=== PATIENT | female | born 1955 | race Caucasian/White ===

== ENCOUNTER 2020-02-20 14:47 | Day surgery (SDC) | payer MEDICARE, OTHER | END 2020-02-20 22:45 | disposition home or self-care (01) | LOC: ATC 14:47 | DX: I13.2 Hypertensive heart and chronic kidney disease with heart failure and with stage 5 chronic kidney disease, or end stage renal disease (principal); E11.22 Type 2 diabetes mellitus with diabetic chronic kidney disease; N18.6 End stage renal disease; I50.22 Chronic systolic (congestive) heart failure; D63.1 Anemia in chronic kidney disease; I48.0 Paroxysmal atrial fibrillation; E66.01 Morbid (severe) obesity due to excess calories; E43 Unspecified severe protein-calorie malnutrition; E11.43 Type 2 diabetes mellitus with diabetic autonomic (poly)neuropathy; I25.10 Atherosclerotic heart disease of native coronary artery without angina pectoris; I25.2 Old myocardial infarction; F41.1 Generalized anxiety disorder; G47.33 Obstructive sleep apnea (adult) (pediatric); F32.9 Major depressive disorder, single episode, unspecified; E78.5 Hyperlipidemia, unspecified; Z20.822 Contact with and (suspected) exposure to COVID-19; Z91.012 Allergy to eggs; Z66 Do not resuscitate; Z95.5 Presence of coronary angioplasty implant and graft; Z86.718 Personal history of other venous thrombosis and embolism; Z79.4 Long term (current) use of insulin; Z79.01 Long term (current) use of anticoagulants; Z79.899 Other long term (current) drug therapy ==

== ENCOUNTER 2020-02-21 07:20 | Day surgery (SDC) | payer OTHER ==
--- NOTE | 2020-02-21 14:59 | NUR ---
discharge pt discharged back to [facility] following administration of 2 units PRBC.
== END 2020-02-21 15:03 | disposition home or self-care (01) ==
LOC: TRN 07:20 → SURS 07:23 → TRN 15:03 → EDSTATUS 02-22 14:20
DX: I13.2 Hypertensive heart and chronic kidney disease with heart failure and with stage 5 chronic kidney disease, or end stage renal disease (principal); E11.22 Type 2 diabetes mellitus with diabetic chronic kidney disease; N18.6 End stage renal disease; I50.22 Chronic systolic (congestive) heart failure; D63.1 Anemia in chronic kidney disease; E43 Unspecified severe protein-calorie malnutrition; E11.43 Type 2 diabetes mellitus with diabetic autonomic (poly)neuropathy; E66.01 Morbid (severe) obesity due to excess calories; G47.33 Obstructive sleep apnea (adult) (pediatric); I48.91 Unspecified atrial fibrillation; M19.90 Unspecified osteoarthritis, unspecified site; I25.10 Atherosclerotic heart disease of native coronary artery without angina pectoris; Z20.822 Contact with and (suspected) exposure to COVID-19; Z91.012 Allergy to eggs; Z66 Do not resuscitate; F41.1 Generalized anxiety disorder; Z79.899 Other long term (current) drug therapy; Z79.4 Long term (current) use of insulin; Z79.01 Long term (current) use of anticoagulants
CPT/HCPCS: 36415; 36430; 86850; 86900; 86901; 86923; P9016

== ENCOUNTER → 2020-03-12 | Outpatient (CLI) | payer OTHER ==
[~2020-03-12] MED LIST: ACET500 PO; ATOR40TA PO; BRILINTA90 MG PO; CARV3.125 PO; CELEXA40 MG PO; CHOLP PO; DICLOFENAC SOD100 G1 TOP; DOCUZEN 8.6-501 EACH PO; ERGO50000 PO; FURO80 PO; GABA100 PO; Glucagon Emergen1 MG IM; ISOSORBIDE MONO30 MG PO; JANTOVEN PO; K-Dur10 MEQ PO; LOPE2C PO; MIRALAX17 GM PO; NITR.4SL SL; NOVOLIN 70100 UNIT/3 SC; NYSTOP15 GM TOP; ONDA4 PO; PANTOPRAZOLE SO40 M2 PO; SYSTANE BALANCE10 ML BOTHEYES; TRAM50 PO; TRAZ50 PO
[2020-03-12 11:47] LABS: Albumin, Blood 1.7 g/dL (3.4-5.0); Albumin/Globulin Ratio 0.4 (0.8-1.8); Bilirubin, Direct 0.2 mg/dL (0.0-0.3); Bilirubin, Indirect 0.3 mg/dL (0.1-0.7); Bilirubin, Total 0.5 mg/dL (0.1-1.0); Bun/Creatinine Ratio 24.2 (12.0-20.0); Creatinine, Blood 2.69 mg/dL (0.40-1.00); Globulin, Blood 4.3 g/dL (2.2-4.0); Magnesium, Blood 1.6 mg/dL (1.6-2.4); Phosphorus, Blood 3.9 mg/dL (2.5-4.9); Potassium, Blood 3.8 mmol/L (3.5-5.5); Uric Acid, Blood 14.5 mg/dL (2.6-6.0)
[2020-03-12 12:04] LABS: Thyroid Stimulating Hormone 1.43 uIU/mL (0.360-4.800)
[2020-03-14 14:07] LABS: A/G RATIO 0.6 (0.7-1.7); ALBUMIN 1.9 g/dL (2.9-4.4); ALPHA-1-GLOBULIN 0.4 g/dL (0.0-0.4); ALPHA-2-GLOBULIN 0.8 g/dL (0.4-1.0); BETA GLOBULIN 0.8 g/dL (0.7-1.3); GAMMA GLOBULIN 1.3 g/dL (0.4-1.8); GLOBULIN, TOTAL 3.3 g/dL (2.2-3.9); IMMUNOGLOBULIN A, QN, SERUM 509 mg/dL (87-352); IMMUNOGLOBULIN G, QN, SERUM 1158 mg/dL (586-1602); IMMUNOGLOBULIN M, QN, SERUM 60 mg/dL (26-217); M-SPIKE 0.4 g/dL (Not Observed); PROTEIN, TOTAL, SERUM 5.2 g/dL (6.0-8.5)
[2020-03-17 08:08] LABS: ANTIGLOMERULAR BM AB 3 units (0-20)
[2020-03-17 14:10] LABS: ANA DIRECT Negative (Negative); ANTIMYELOPEROXIDASE (MPO) ABS <9.0 U/mL (0.0-9.0); ANTIPROTEINASE 3 (PR-3) ABS <3.5 U/mL (0.0-3.5); ATYPICAL PANCA <1:20 titer (Neg:<1:20); CYTOPLASMIC (C-ANCA) <1:20 titer (Neg:<1:20); PERINUCLEAR (P-ANCA) <1:20 titer (Neg:<1:20)
== END | disposition home or self-care (01) ==
LOC: LAB SHORT 10:05 → LAB 10:05
PROVIDERS: Internal Medicine Nephrology
DX: N18.30 Chronic kidney disease, stage 3 unspecified (principal); D63.1 Anemia in chronic kidney disease; N25.81 Secondary hyperparathyroidism of renal origin; E55.9 Vitamin D deficiency, unspecified; E78.00 Pure hypercholesterolemia, unspecified; D51.8 Other vitamin B12 deficiency anemias; D52.8 Other folate deficiency anemias; D50.9 Iron deficiency anemia, unspecified; R76.9 Abnormal immunological finding in serum, unspecified; R94.5 Abnormal results of liver function studies; R94.6 Abnormal results of thyroid function studies
CPT/HCPCS: 80053; 82088; 82248; 82607; 82728; 82746; 82784; 83516; 83520; 83540; 83550; 83735; 83883; 84100; 84155; 84165; 84244; 84443; 84550; 86038; 86256; 86334

== ENCOUNTER → 2020-03-17 | Outpatient (CLI) | payer MEDICARE, OTHER ==
[2020-03-17 11:01] LABS: Albumin, Blood 1.5 g/dL (3.4-5.0); Anion Gap 7 mmol/L (6-16); Blood Urea Nitrogen 77 mg/dL (8-24); Bun/Creatinine Ratio 23.3 (12.0-20.0); CO2, Blood 29 mmol/L (21-32); Calcium, Blood 7.9 mg/dL (8.5-10.1); Chloride, Blood 91 mmol/L (98-108); Creatinine, Blood 3.31 mg/dL (0.40-1.00); Glomerular Filtration Rate 15 (60-); Glucose, Blood 139 mg/dL (70-99); Phosphorus, Blood 4.2 mg/dL (2.5-4.9); Potassium, Blood 4.1 mmol/L (3.5-5.5); Sodium, Blood 127 mmol/L (136-145)
[2020-03-19 14:09] LABS: A/G RATIO 0.5 (0.7-1.7); ALBUMIN 1.6 g/dL (2.9-4.4); ALPHA-1-GLOBULIN 0.4 g/dL (0.0-0.4); ALPHA-2-GLOBULIN 0.8 g/dL (0.4-1.0); BETA GLOBULIN 0.8 g/dL (0.7-1.3); GAMMA GLOBULIN 1.3 g/dL (0.4-1.8); GLOBULIN, TOTAL 3.4 g/dL (2.2-3.9); IMMUNOGLOBULIN A, QN, SERUM 504 mg/dL (87-352); IMMUNOGLOBULIN G, QN, SERUM 1162 mg/dL (586-1602); IMMUNOGLOBULIN M, QN, SERUM 58 mg/dL (26-217); M-SPIKE 0.4 g/dL (Not Observed)
[2020-03-20 08:10] LABS: ANTIGLOMERULAR BM AB 3 units (0-20)
== END | disposition home or self-care (01) ==
LOC: LAB 09:00 → LAB SHORT 09:00
PROVIDERS: Internal Medicine Nephrology
DX: R94.5 Abnormal results of liver function studies (principal); R94.6 Abnormal results of thyroid function studies; R76.9 Abnormal immunological finding in serum, unspecified; N18.30 Chronic kidney disease, stage 3 unspecified; D63.1 Anemia in chronic kidney disease
CPT/HCPCS: 80069; 82306; 82784; 83516; 83883; 83970; 84155; 84165; 86334

== ENCOUNTER 2020-03-21 18:37 | Inpatient (IN) | payer MEDICARE, OTHER ==
[~2020-03-21] VITALS: Ht 160 cm; Wt 155.5 kg
[2020-03-21 18:56] LABS: BASOPHILS ABSOLUTE AUTO 0.18 K/mm3 (0.00-0.23); BASOPHILS PERCENT AUTO 0 % (0-2); EOSINOPHILS PERCENT AUTO 0 % (0-6); Hematocrit 28.1 % (33.0-51.0); Hemoglobin 8.4 g/dL (11.5-16.0); IMMATURE GRAN ABSOLUTE AUTO 1.65 K/mm3 (0.00-0.10); IMMATURE GRAN PERCENT AUTO 3 % (0-1); LYMPHOCYTES ABSOLUTE AUTO 2.58 K/mm3 (0.84-5.20); LYMPHOCYTES PERCENT AUTO 5 % (21-46); MONOCYTES ABSOLUTE AUTO 1.67 K/mm3 (0.16-1.47); MONOCYTES PERCENT AUTO 3 % (4-13); Mean Corpuscular HGB 23.4 pg (26.0-34.0); Mean Corpuscular HGB Conc 29.9 g/dL (31.5-36.5); Mean Corpuscular Volume 78 fL (80-100); Mean Platelet Volume 10.1 fL (9.1-12.4); NEUTROPHILS ABSOLUTE AUTO 51.25 K/mm3 (1.96-9.15); NEUTROPHILS PERCENT AUTO 89 % (41-73); NRBC ABSOLUTE 0.09 K/mm3 (0.00-0.02); NRBC Auto 0.2 /100 WBC (0.0-0.2); Platelet Count 410 K/mm3 (150-400); RDW Coefficient Variation 19.6 % (11.7-14.2); RDW Standard Deviation 55.6 fL (35.1-46.3); Red Blood Cell Count 3.59 M/mm3 (3.80-5.20)
[2020-03-21 19:02] LABS: White Blood Cell Count 57.33 K/mm3 (4.00-11.30)
[2020-03-21] MEDS ORDERED: TRAZ50 PO (19:18)
[2020-03-21 19:20] LABS: Albumin, Blood 1.3 g/dL (3.4-5.0); Albumin/Globulin Ratio 0.3 (0.8-1.8); Bilirubin, Total 0.6 mg/dL (0.1-1.0); Bun/Creatinine Ratio 28.4 (12.0-20.0); Calcium, Blood 7.8 mg/dL (8.5-10.1); Creatinine, Blood 3.24 mg/dL (0.40-1.00); Globulin, Blood 4.3 g/dL (2.2-4.0); Total Protein, Blood 5.6 g/dL (6.4-8.2)
[2020-03-21 19:30] LABS: Prothrombin Time Results >90.0 Sec (9.7-11.5)
[2020-03-21 19:31] LABS: International Normalized Ratio >10.00
[2020-03-21] MEDS ORDERED: ATOR40TA PO (20:31)
[2020-03-21] MEDS ORDERED: CELEXA40 MG PO (20:31)
[2020-03-21] MEDS ORDERED: GABA100 PO (20:32)
[2020-03-21] MEDS ORDERED: BRILINTA90 MG PO (20:32)
[2020-03-21] MEDS ORDERED: ISOSORBIDE MONO30 MG PO (20:33)
[2020-03-21] MEDS ORDERED: FURO80 PO ×2 (20:33→20:40)
[2020-03-21] MEDS ORDERED: K-Dur10 MEQ PO (20:34)
[2020-03-21] MEDS ORDERED: CARV3.125 PO (20:35)
[2020-03-21] MEDS ORDERED: PANTOPRAZOLE SO40 M2 PO (20:35)
[2020-03-21] MEDS ORDERED: ERGO50000 PO (20:36)
[2020-03-21] MEDS ORDERED: MIRALAX17 GM PO (20:37)
[2020-03-21] MEDS ORDERED: TRAM50 PO (20:38)
[2020-03-21] MEDS ORDERED: ONDA4 PO (20:39)
[2020-03-21] MEDS ORDERED: SYSTANE BALANCE10 ML BOTHEYES (20:40)
[2020-03-21] MEDS ORDERED: NITR.4SL SL (20:41)
[2020-03-21] MEDS ORDERED: ACET500 PO (20:42)
[2020-03-21] MEDS ORDERED: LOPE2C PO (20:43)
[2020-03-21] MEDS ORDERED: CHOLP PO (20:43)
[2020-03-21] MEDS ORDERED: DOCUZEN 8.6-501 EACH PO (20:44)
[2020-03-21] MEDS ORDERED: JANTOVEN PO (22:31)
[2020-03-21] MEDS ORDERED: NYSTOP15 GM TOP (22:32)
[2020-03-21] MEDS ORDERED: NOVOLIN 70100 UNIT/3 SC (22:33)
[2020-03-21] MEDS ORDERED: DICLOFENAC SOD100 G1 TOP (22:34)
[2020-03-21] MEDS ORDERED: Glucagon Emergen1 MG IM (22:35)
--- NOTE | 2020-03-21 22:38 | NUR ---
03/21/20 2238 Kit Pena PT RECIEVED ANTIBIOTICS PRIOR TO ARRIVAL TO OR.
--- NOTE | 2020-03-21 23:25 | NUR ---
ASSUMED CARE NOTE: ASSUMED CARE OF PT AT 2325, RECEVIED REPORT FROM ANEESH ER NURSE, AND ELIZABETH OR NURSE. PT ARRIVED TO UNIT VIA BED, HOVER MAT WAS USED TO TRANSFER PT TO UNIT BED. PT IS VENTED WITH 8.0 ETT, 22 AT THE [facility]. PT VENT SETTINGS AC18/370/5/50%, SPO2 ABOVE 90% NO RESP DISTRESS NOTED. PT RESPONDS TO VERBAL AND PAINFUL STIMULI. ABLE TO FOLLOW COMMANDS, ANSWER YES/NO QUESTIONS. DR. CUEVAS CALLED FOR CONSULT, AWAITING FOR VAP ORDERS. PT BP IS SOFT. PT IS IN SINUS LILLI WITH HR IN THE 50'S. OGT PLACED AT ARRIVAL BY ARJUN FINANCIAL ACCOUNTING ANALYST. X-RAY TO CONFIRM ETT AND OGT PLACEMENT.VETO AREA PACKED BY , WILL LEAVE IN PLACE FOR A FEW DAYS UNTIL HE TAKES IT OUT. GLEASON WAS ALSO PLACED BY IN THE OR. GLEASON DRAINING TEA COLORED URINE, SEDIMENT NOTED.
--- NOTE | 2020-03-22 01:20 | NUR ---
SBP IN THE 80'S, DBP IN THE 40'S, MAP IN THE 50'S. CALLED DR. CUEVAS REGARDING LOW BP. ORDERS FOR 1L BOLUS, GIVEN. WILL ATTEMPT TO OBTAIN GOOD IV ACCESS FOR PRESSORS.
--- NOTE | 2020-03-22 02:10 | NUR ---
LEVOPHED INITIATED AND TITRATED UP TO 5MCG/MIN. SBP INCREASED TO 100, MAP AT 60. PROPOFOL WAS AT 10MCG/KG/MIN WHICH WAS TURNED OFF AT 0200. PT VERY PALE, WEAK PULSES T/O. PT IS IN SINUS LILLI HR IN THE 50'S. PT HAS YET TO AWAKEN POST TURNING OFF SEDATION. NO ACTIVE BLEEDING NOTED FROM LABIA SITE.
[2020-03-22 03:24] LABS: BASOPHILS ABSOLUTE AUTO 0.18 K/mm3 (0.00-0.23); BASOPHILS PERCENT AUTO 0 % (0-2); EOSINOPHILS ABSOLUTE AUTO 0.01 K/mm3 (0.00-0.68); EOSINOPHILS PERCENT AUTO 0 % (0-6); Hematocrit 26.1 % (33.0-51.0); Hemoglobin 7.8 g/dL (11.5-16.0); IMMATURE GRAN PERCENT AUTO 4 % (0-1); LYMPHOCYTES ABSOLUTE AUTO 2.75 K/mm3 (0.84-5.20); LYMPHOCYTES PERCENT AUTO 6 % (21-46); MONOCYTES ABSOLUTE AUTO 0.97 K/mm3 (0.16-1.47); MONOCYTES PERCENT AUTO 2 % (4-13); Mean Corpuscular HGB 23.9 pg (26.0-34.0); Mean Corpuscular HGB Conc 29.9 g/dL (31.5-36.5); Mean Corpuscular Volume 80 fL (80-100); Mean Platelet Volume 10.1 fL (9.1-12.4); NEUTROPHILS ABSOLUTE AUTO 40.31 K/mm3 (1.96-9.15); NEUTROPHILS PERCENT AUTO 88 % (41-73); NRBC Auto 0.2 /100 WBC (0.0-0.2); Platelet Count 374 K/mm3 (150-400); RDW Coefficient Variation 19.9 % (11.7-14.2); RDW Standard Deviation 57.3 fL (35.1-46.3); Red Blood Cell Count 3.27 M/mm3 (3.80-5.20); White Blood Cell Count 45.82 K/mm3 (4.00-11.30)
--- NOTE | 2020-03-22 03:28 | NUR ---
CALLED DR. CUEVAS REGARDING LOW BP, ORDERS TO GIVE ANOTHER 1000ML BOLUS OVER THE PERIOD OF TWO HOURS. FAITH STS IT IS OKAY TO TITRATE LEVOPHED UP TO 10MCG/MIN VIA PERIPHERAL IV.
[2020-03-22 03:37] LABS: International Normalized Ratio 1.34
[2020-03-22 03:42] LABS: Anion Gap 13 mmol/L (6-16); Blood Urea Nitrogen 86 mg/dL (8-24); Bun/Creatinine Ratio 29.9 (12.0-20.0); CO2, Blood 23 mmol/L (21-32); Calcium, Blood 7.6 mg/dL (8.5-10.1); Chloride, Blood 94 mmol/L (98-108); Creatinine, Blood 2.88 mg/dL (0.40-1.00); Glomerular Filtration Rate 17 (60-); Glucose, Blood 90 mg/dL (70-99); Potassium, Blood 3.4 mmol/L (3.5-5.5); Sodium, Blood 130 mmol/L (136-145); Vancomycin, Random 20.9 ug/mL
[2020-03-22 03:43] LABS: Prothrombin Time Results 14.1 Sec (9.7-11.5)
--- NOTE | 2020-03-22 03:49 | NUR ---
NS RUNNING AT 100ML/HR INCREASED TO 500ML/HR , FOR A TOTAL OF 1000ML OVER THE NEXT 2 HOURS PER FAITH
--- NOTE | 2020-03-22 04:26 | NUR ---
LEVOPHED ON SB. SBP INCREASED TO 150 AND REMAINED UP THERE FOR [address] TO ASSESS PT.
[2020-03-22 05:23] LABS: PCO2 Arterial 35.3 mmHg (35-45); PO2 Arterial 73.1 mmHg (80-100); pH Blood Arterial 7.43 (7.35-7.45)
[2020-03-22 06:14] LABS: Source, Urine Catheter
[2020-03-22 06:17] LABS: Appearance, Urine Cloudy (Clear); Bilirubin, Urine Neg (Neg); Blood, Urine 5+ (Neg); Color, Urine Yellow (P-Yellow); Glucose Qualitative, Urine Neg (Neg); Ketones, Urine Neg (Neg); Leukocyte Esterase, Urine 3+ (Neg); Nitrite, Urine Pos (Neg); Protein, Urine 3+ (Neg); Urobilinogen, Urine NORM (Normal)
[2020-03-22 06:24] LABS: White Blood Cells, Urine TNTC /hpf (0-5)
[2020-03-22 06:25] LABS: Bacteria Many /hpf; Squamous Epithelial Cells Few /hpf (Few)
--- NOTE | 2020-03-22 06:37 | NUR ---
SHIFT SUMMARY: CAME IN TO SEE PT AT 0445, A CENTRAL LINE WAS PLACED TO LEFT INTERNAL JUGULAR, XRAY CONFIMRED PLACEMENT. PT CONTINUES TO BE ON 15MCG/KG/MIN OF PROPOFOL. PT RESPONDS TO PAINFUL STIMULI, HOWEVER IS WELL SEDATED. PT CONTINUES TO BE ON VENT WITH SETTINGS AT AC18/370/5/25%, SPO2 ABOVE 90% NO RESP DISTRESS NOTED. PT IN SINUS LILLI WITH BIGEMINEY PVC'S. PT BP STABLE NOW WITH LEVOPHED AT 4MCG/MIN. OGT CLAMPED AT THIS TIME. ABD PADS TO LEFT LABIA HAVE DRIED RED DRAINAGE, NO ACTIVE BLEEDING TO SITE. PT HAD ONE LOOSE BM THIS SHIFT, DRY FLOW PLCAED. GLEASON DRIANING TO GRAVITY, NEEDS TO BE REPOSITIONED FREQUENTLY FOR URINE TO DRAIN DUE TO PT'S ANATOMY. GLEASON WAS FLUSHED ONE WITH 10CC DUE TO SEDIMENT OBSTRUCTING FLOW. URINE IS FOUL IN ODOR, DARK TEA COLOR WITH LOTS OF SEDIMENT. URINE WAS CULTURED. WOUND CARE ORDER PLACED FOR RLE WOUND. ORTHO BOOT STILL IN PLACE. PT IS VERY PALE IN COLOR. PT TEMP CAME TO NORMAL TEMP 97.5 FROM 95.0 WITH BEAR HUGGER.
--- NOTE | 2020-03-22 07:30 | NUR ---
ASSUMED CARE BEDSIDE REPORT FROM KRISHAN AVITIA. PT INTUBATED AND SEDATED. VENT SETTINGS AC 18/370/5/25%. PROPOFOL GTT 15 MCG/KG/MIN. PT WAKES c PAINFUL STIMULI. PULLS ON RESTRAINTS. APPEARS TO REST WHEN UNDISTURBED. COUGH/GAG/SWALLOW REFLEX PRESENT. LUNGS CLEAR, DIMINISHED IN BASES. SCANT THIN CLEAR SECRETIONS THROUGH ETT. ABD OBESE, ROUND, NON TENDER. BT X 4. OGT CONNECTED TO LIS. SCANT CLEAR EMESIS IN TUBING. AWAITING VERIFICATION PRIOR TO MED ADMINISTRATION. GLEASON PATENT, DRAINING DARK TAM URINE c HEAVY SEDIMENT TO GRAVITY. PT PALE. CENTRAL LINE TO LIJ, DRESSING C/D/I. FISTULA TO LFA, THRILL AND BRUIT NOTED. PIV X4 PATENT. LEVOPHED GTT FOR MAP >65. NS AT 100ML/HR. ANTIBIOTICS AND ELECTROLYTES INFUSING. WALKING BOOT TO RLE. TOES WARM, CAP REFILL<3 SEC. PT S/P DEBRIDEMENT OF LEFT LABIA, PACKING IN PLACE. GROIN MOSTLY SOFT OTHER THAN MIDLINE AND LEFT OUTER LABIA c ECCHYMOSIS. WILL CONTINUE TO MONITOR.
--- NOTE | 2020-03-22 08:49 | NUR ---
DR RENNER ROUNDS DR RENNER AT BEDSIDE FOR DRESSING CHANGE. PACKING REMOVED, PHOTOS TAKEN. REPACKED c KERLEX AND DAKIN SOLUTION BY DR RENNER. ABD PADS PLACED. WOUND DEEP c PURPLE/PEREZ TISSUE. SCANT BLEEDING. SWELLING AND FIRMNESS TO LEFT LABIA. DR RENNER WILL RE EVAL THIS AFTERNOON. WILL CONTINUE TO MONITOR FOR INCREASE IN FIRMNESS AND DISCOLORATION.
[2020-03-22 12:30] LABS: BASOPHILS ABSOLUTE AUTO 0.13 K/mm3 (0.00-0.23); BASOPHILS PERCENT AUTO 0 % (0-2); EOSINOPHILS ABSOLUTE AUTO 0.04 K/mm3 (0.00-0.68); EOSINOPHILS PERCENT AUTO 0 % (0-6); Hematocrit 23.2 % (33.0-51.0); IMMATURE GRAN ABSOLUTE AUTO 1.91 K/mm3 (0.00-0.10); IMMATURE GRAN PERCENT AUTO 4 % (0-1); LYMPHOCYTES ABSOLUTE AUTO 2.23 K/mm3 (0.84-5.20); LYMPHOCYTES PERCENT AUTO 5 % (21-46); MONOCYTES ABSOLUTE AUTO 0.73 K/mm3 (0.16-1.47); MONOCYTES PERCENT AUTO 2 % (4-13); Mean Corpuscular HGB Conc 30.2 g/dL (31.5-36.5); Mean Corpuscular Volume 80 fL (80-100); Mean Platelet Volume 10.4 fL (9.1-12.4); NEUTROPHILS ABSOLUTE AUTO 39.38 K/mm3 (1.96-9.15); NEUTROPHILS PERCENT AUTO 89 % (41-73); NRBC ABSOLUTE 0.07 K/mm3 (0.00-0.02); NRBC Auto 0.2 /100 WBC (0.0-0.2); Platelet Count 394 K/mm3 (150-400); RDW Coefficient Variation 19.8 % (11.7-14.2); RDW Standard Deviation 57.1 fL (35.1-46.3); Red Blood Cell Count 2.92 M/mm3 (3.80-5.20); White Blood Cell Count 44.42 K/mm3 (4.00-11.30)
[2020-03-22 12:52] LABS: Bun/Creatinine Ratio 29.4 (12.0-20.0); Calcium, Blood 8.2 mg/dL (8.5-10.1); Creatinine, Blood 2.86 mg/dL (0.40-1.00); Magnesium, Blood 1.3 mg/dL (1.6-2.4); Phosphorus, Blood 3.8 mg/dL (2.5-4.9); Potassium, Blood 3.4 mmol/L (3.5-5.5)
--- NOTE | 2020-03-22 13:45 | NUR ---
DR RENNER ROUNDS DR RENNER AT BEDSIDE TO REASSESS. PLAN TO TAKE PT BACK TO OR. WILL TRANSFUSE PRIOR.
[2020-03-22 15:03] LABS: Vancomycin, Random 17.5 ug/mL
--- NOTE | 2020-03-22 16:59 | NUR ---
SHIFT SUMMARY PT REMAINS INTUBATED AND SEDATED. VENT SETTINGS AC 18/370/5/25%. PROPOFOL GTT 20 MCG/KG/MIN. PT GRIMACES c CARE, RESPONSES TO PAINFUL STIMULI. COUGH/GAG REFLEX. LUNGS DIMINISHED IN BASES. LEVOPHED GTT CONTINUES FOR MAP>65, CURRENTLY AT 2 MCG/MIN. 1 UNIT OF PBRCS TRANSFUSED THIS SHIFT. CA AND K REPLACED THIS SHIFT, ANTIBIOTICS CHANGED. NS CONTINUES AT 100ML/HR. GLEASON PATENT, DRAINED 275 ML OF DARK, CLOUDY URINE OUT. TUBE FEEDS STARTED, VHP AT 15 ML/HR c 30 ML FLUSHES q4. ORDER PLACED TO PUT ON STANDBY AT 0000. DR RENNER REASSESSED TWICE THIS SHIFT, CHANGED DRESSINGS. PLAN TO TAKE PT BACK TO OR TOMORROW. WILL CONTINUE TO MONITOR UNTIL REPORT TO ONCOMING NURSE.
--- NOTE | 2020-03-22 18:27 | NUR ---
INCREASED REDNESS NOTED TO PANNUS AND MEDIAL LEFT THIGH, WARM. INCREASED AREA OF HARDENED EDGES. DR RENNER NOTIFIED. PLAN TO GO TO OR TONIGHT. TUBE FEEDS PLACED ON STANDBY.
--- NOTE | 2020-03-22 19:26 | NUR ---
ASSUMED CARE NOTE: ASSUMED CARE OF PT AT 1900, RECEIVED REPORT FROM ANGELA AVITIA. PT IS SEDATED WITH 20MCG/KG/MIN OF PROPOFOL. PT ON VENT WITH SETTINGS AT AC18/370/5/25% SPO2 ABOVE 90% PT IS RESPONSIVE TO PAINFUL STIMULI. PT IS IN SINUS RHYTHM WITH HR IN THE 60'S , PVC'S NOTED. BP STABLE WITH LEVOPHED RUNNING AT 2MCG/MIN. OGT CLAMPED. PT WILL BE GOING TO THE OR IN THE NEXT HOUR. OR NURSE AT BEDSIDE. GLEASON DRAINING TO GAVITY, DARK TEA COLORED, SEDIMENT NOTED. PT CURRENTLY RECEVING K+ AND MAG REPLACMENT. TRANSPORT MONITOR IN THE ROOM.
--- NOTE | 2020-03-22 19:59 | NUR ---
PT LEFT TO OR AT 1950
--- NOTE | 2020-03-22 20:27 | NUR ---
03/22/202026 Rosales Harrell 5 PATIENT ARRIVED TO OR IN CARE OF ANESTHESIA FROM ICU. HOVER MAT USED TO TRANSFER PATIENT. PATIENT ON SCHEDULED ANTIBIOTICS.
[2020-03-22 21:33] LABS: Hematocrit 25.3 % (33.0-51.0); Hemoglobin 7.6 g/dL (11.5-16.0)
--- NOTE | 2020-03-22 22:58 | NUR ---
PT RETURNED FROM OR AT 2121. WOUND PACKING PLACED IN THE OR (LEFT LABIA WOUND) SHALL REMAIN THERE UNTIL COMES TO CHANGE AND EVALUATE SITE IN THE AM. PT LEFT INNER THIGH IS RED, SWOLLEN , HOT TO THE TOUCH. ABD PADS PLACED IN OR. ORDERED 1 UNIT OF PRBC, IS INFUSING AT THIS TIME. DRY FLOW SATURATED WITH IRRIGATION FROM OR. PT WAS GIVEN A PARTIAL BATH, DRY FLOW CHANGED AND MELENDEZ PAD, TO PREVENT FURTHER SKIN BREAKDOWN. PT CONTINUES TO BE ON LEVOPHED AT 4MCG/MIN TO MAINTAIN MAP ABOVE 65. PT CONTINUES TO BE ON PROPOFOL AT 20MCG/KG/MIN. WOUND DRESSING TO RLE CHANGED, WOUND FOAM RUBBER MIXER USED, XEROFORM , ABD PAD, KERLEX, AND NANCY BAND APPLIED. ORTHO BOOT IN PLACE TO RLE. WILL CONTINUE TO MONITOR PT T/O
--- NOTE | 2020-03-23 02:33 | NUR ---
WOUND TO VETO AREA IS MORE SWOLLEN AND RED THEN BEFORE, YELLOW DRAINGAE NOTED, PACKING CONTINUES TO BE IN PLACE. PT IS HAVING LOOSE BM'S. PT CLEANED AND NEW DRY FLOW WAS APPLIED. SKIN BREAKDOWN NOTED TO COCCYX, WILL CONTINUE TO TURN PT 2QHR TO PREVENT FURTHER BREAKDOWN.
[2020-03-23 03:01] LABS: BASOPHILS ABSOLUTE AUTO 0.14 K/mm3 (0.00-0.23); BASOPHILS PERCENT AUTO 0 % (0-2); EOSINOPHILS ABSOLUTE AUTO 0.06 K/mm3 (0.00-0.68); EOSINOPHILS PERCENT AUTO 0 % (0-6); Hemoglobin 8.2 g/dL (11.5-16.0); IMMATURE GRAN ABSOLUTE AUTO 2.44 K/mm3 (0.00-0.10); IMMATURE GRAN PERCENT AUTO 6 % (0-1); LYMPHOCYTES ABSOLUTE AUTO 2.26 K/mm3 (0.84-5.20); LYMPHOCYTES PERCENT AUTO 5 % (21-46); MONOCYTES ABSOLUTE AUTO 0.62 K/mm3 (0.16-1.47); MONOCYTES PERCENT AUTO 2 % (4-13); Mean Corpuscular HGB 24.6 pg (26.0-34.0); Mean Corpuscular HGB Conc 30.4 g/dL (31.5-36.5); Mean Corpuscular Volume 81 fL (80-100); Mean Platelet Volume 9.9 fL (9.1-12.4); NEUTROPHILS ABSOLUTE AUTO 36.18 K/mm3 (1.96-9.15); NEUTROPHILS PERCENT AUTO 87 % (41-73); NRBC Auto 0.2 /100 WBC (0.0-0.2); Platelet Count 344 K/mm3 (150-400); RDW Coefficient Variation 19.3 % (11.7-14.2); RDW Standard Deviation 57.2 fL (35.1-46.3); Red Blood Cell Count 3.33 M/mm3 (3.80-5.20)
[2020-03-23 03:18] LABS: Magnesium, Blood 1.5 mg/dL (1.6-2.4)
[2020-03-23 03:19] LABS: Albumin, Blood 1.3 g/dL (3.4-5.0); Anion Gap 13 mmol/L (6-16); Blood Urea Nitrogen 82 mg/dL (8-24); CO2, Blood 20 mmol/L (21-32); Calcium, Blood 7.4 mg/dL (8.5-10.1); Chloride, Blood 99 mmol/L (98-108); Creatinine, Blood 2.56 mg/dL (0.40-1.00); Glomerular Filtration Rate 20 (60-); Glucose, Blood 183 mg/dL (70-99); Phosphorus, Blood 4.5 mg/dL (2.5-4.9); Potassium, Blood 3.7 mmol/L (3.5-5.5); Sodium, Blood 132 mmol/L (136-145); Vancomycin, Random 14.7 ug/mL
[2020-03-23 03:21] LABS: BAND PERCENT MAN 3 % (0-8); BASOPHILS PERCENT MAN 0 % (0-2); EOSINOPHILS PERCENT MAN 0 % (0-6); LYMPHOCYTES ABSOLUTE MAN 0.83 K/mm3 (0.84-5.20); LYMPHOCYTES PERCENT MAN 2 % (21-46); MONOCYTES ABSOLUTE MAN 0.41 K/mm3 (0.16-1.47); MONOCYTES PERCENT MAN 1 % (4-13); NEUTROPHILS ABSOLUTE MAN 40.44 K/mm3 (1.96-9.15); SEG NEUTROPHILS PERCENT MAN 94 % (41-73); TOTAL CELLS COUNTED 100
--- NOTE | 2020-03-23 04:18 | NUR ---
CALLED ANSWERING SERVICE FOR REGARDING PT'S CHANGE TO WOUND SITE. IT CONTINUES TO BE VERY EDEMATOUS, RED AND WARM TO THE TOUCH.
--- NOTE | 2020-03-23 04:23 | NUR ---
CALLED, CT SCAN ORDERED W/O CONTRAST.
--- NOTE | 2020-03-23 05:30 | NUR ---
PT TO CT SCAN FROM . RT, THIS NURSE AND PCT TRANSFERED PT SAFELY.
--- NOTE | 2020-03-23 05:54 | NUR ---
SHIFT SUMMARY: SEE PREVIOUS NOTES. PT CONTINUES TO BE SEDATED WITH PROPOFOL AT 20MCG/KG/MIN. PT STILL RESPONDS TO VERBAL AND PAINFUL STIMULI, EVEN ON SEDATION. PT CAN ANSWER YES/NO QUESTIONS USING HEAD GEASTURES. PT NODED YES TO PAIN, PAIN MEDS WERE GIVEN PER EMAR. NO CHANGES TO VENT SETTINGS, PT TOLERATING VENT. PT CONTINUES TO BE ON LEVOPHED 2MCG/MIN TO MAINTAIN MAP GREATER THAN 65. PT HAS BEEN IN SINUS LILLI WITH HR IN THE 50'S. OGT TO TF, RATE INCREASED TO 30ML/HR AT 0600, RESIDUAL 50ML. PT WENT TO CT SCAN THIS SHIFT, DUE TO WORESENING WOUND AREA. PANUS IS VERY SWOLLEN, LEFT UPPER THIGH +2 PITTING EDEMA. GLEASON IS PATENT DRAINING TO GRAVITY. PT HAS TWO RINGS IN LOCK BOX, REMOVED DUE TO HAND SWELLING.
--- NOTE | 2020-03-23 07:45 | NUR ---
ASSUMED CARE BEDSIDE REPORT FROM KRISHNA AVITIA AT 0700. PT INTUBATED AND SEDATED. PROPOFOL GTT 20 MCG/KG/MIN. PT OPENS EYES TO VERBAL STIMULI. DOES NOT FOLLOW COMMANDS. MOVES ALL EXTREMITIES. COUGH/GAG/SWALLOW REFLEX PRESENT. VENT SETTINGS AC 18/370/5/25%. LUNGS DIMINISHED IN BASES. SCANT SECRETIONS THROUGH ETT. ABD OBESE, ROUND, NON TENDER. BT X 4. TUBE FEEDS AT GOAL, VHP AT 30 ML/HR c 30 ML FLUSHES q4 HR. 80 ML OF RESIDUALS THIS AM. GLEASON PATENT, DRAINING CLOUDY TAM URINE c SEDIMENT TO GRAVITY. PACKING IN PLACE TO LEFT LABIA. REDNESS AND SWELLING TO MEDIAL LEFT THIGH, PANNUS. SLIGHTLY FIRMER THAN RIGHT SIDE. LEVOPHED GTT FOR MAP>65, CURRENTLY AT 2 MCG/MIN VIA CENTRAL LINE TO LIJ, DRESSING C/D/I. NS AT 100 ML/HR. MAG BEING REPLACED, ANTIBIOTICS INFUSING. WILL CONTINUE TO MONITOR.
--- NOTE | 2020-03-23 09:00 | NUR ---
DR RENNER ROUNDS DR RENNER AT BEDSIDE TO ASSESS SURGICAL SITE. PACKING REMOVED, ODOR DECREASED FROM YESTERDAY. REPACKED c KERLEX c DAKIN AND ABD PADS. CONTINUE TO LEAVE PACKING IN PLACE AND REINFORCE DRESSING IF NEEDED. DR RENNER ANTICIPATES RECHECK OF WOUND TOMORROW AND NO SURGICAL INTERVENTIONS TODAY. CT CANCELLED. WILL CONTINUE TO MONITOR.
--- NOTE | 2020-03-23 10:30 | NUR ---
PROPOFOL PLACED ON STANDBY, PT AWAKE, FOLLOWING COMMANDS, ABLE TO BACTERIOLOGY TECHNICIAN TO TAKE SLOW DEEP BREATHS. RT AT BEDSIDE TO PLACE PT ON SPONT, 7/5 25%. PT TOLERATED WELL. DR CUEVAS AT BEDSIDE. PT EXTUBATED AT 1007. PLACED ON 2L VIA NC. TOLERATING WELL. DENIES PAIN. WILL CONTINUE TO MONITOR.
--- NOTE | 2020-03-23 17:38 | NUR ---
SHIFT SUMMARY PT EXTUBATED THIS SHIFT. SEE NOTE, TOLERATED WELL. PT CURRENTLY ON RA. PLAN FOR CPAP TONIGHT. PT STATES SHE WAS NON COMPLIANT c PREVIOUS CPAP. LUNGS CLEAR. PT ABLE TO MANAGE SECRETIONS. PT A&OX 3. FOLLOW COMMANDS, ANSWERS QUESTIONS APPROPRIATELY. LEVOPHED TITRATED OFF THIS SHIFT. VSS. MEDICATED c FENTANYL PRN. PT STATES PAIN 4/10-2/10 POST FENTANYL. TURNS q2. GLEASON PATENT, DRAINING CLOUDY YELLOW URINE TO GRAVITY. NO CHANGES NOTED TO GROIN POST DR RENNER ASSESSMENT THIS AM. PT FAILED BEDSIDE SWALLOW D/T COUGHING. SPEECH EVAL ORDERED. PALLATIVE CARE CONSULT ORDERED. POST EXTUBATION, PT INITIALLY STATED "I DONT WANT TO DO THIS AGAIN." AFTER SPEAKING c LEAH TURNER, PT IS AGREEABLE TO ADDITIONAL SURGERIES IF NEEDED. WILL CONTINUE TO MONITOR UNTIL REPORT TO ONCOMING NURSE.
[2020-03-24 04:47] LABS: BASOPHILS ABSOLUTE AUTO 0.07 K/mm3 (0.00-0.23); BASOPHILS PERCENT AUTO 0 % (0-2); EOSINOPHILS ABSOLUTE AUTO 0.11 K/mm3 (0.00-0.68); EOSINOPHILS PERCENT AUTO 0 % (0-6); Hematocrit 27.5 % (33.0-51.0); Hemoglobin 8.3 g/dL (11.5-16.0); IMMATURE GRAN ABSOLUTE AUTO 1.53 K/mm3 (0.00-0.10); IMMATURE GRAN PERCENT AUTO 6 % (0-1); LYMPHOCYTES ABSOLUTE AUTO 1.58 K/mm3 (0.84-5.20); LYMPHOCYTES PERCENT AUTO 6 % (21-46); MONOCYTES ABSOLUTE AUTO 0.45 K/mm3 (0.16-1.47); MONOCYTES PERCENT AUTO 2 % (4-13); Mean Corpuscular HGB 24.4 pg (26.0-34.0); Mean Corpuscular HGB Conc 30.2 g/dL (31.5-36.5); Mean Corpuscular Volume 81 fL (80-100); Mean Platelet Volume 9.7 fL (9.1-12.4); NEUTROPHILS ABSOLUTE AUTO 22.44 K/mm3 (1.96-9.15); NEUTROPHILS PERCENT AUTO 86 % (41-73); NRBC ABSOLUTE 0.13 K/mm3 (0.00-0.02); NRBC Auto 0.5 /100 WBC (0.0-0.2); Platelet Count 298 K/mm3 (150-400); RDW Coefficient Variation 19.6 % (11.7-14.2); RDW Standard Deviation 57.5 fL (35.1-46.3); White Blood Cell Count 26.18 K/mm3 (4.00-11.30)
[2020-03-24 05:05] LABS: Anion Gap 11 mmol/L (6-16); Blood Urea Nitrogen 81 mg/dL (8-24); Bun/Creatinine Ratio 32.7 (12.0-20.0); CO2, Blood 21 mmol/L (21-32); Calcium, Blood 8.3 mg/dL (8.5-10.1); Chloride, Blood 102 mmol/L (98-108); Creatinine, Blood 2.48 mg/dL (0.40-1.00); Glomerular Filtration Rate 21 (60-); Glucose, Blood 162 mg/dL (70-99); Magnesium, Blood 2.4 mg/dL (1.6-2.4); Phosphorus, Blood 4.7 mg/dL (2.5-4.9); Potassium, Blood 3.5 mmol/L (3.5-5.5); Sodium, Blood 134 mmol/L (136-145)
[2020-03-24 05:06] LABS: BAND PERCENT MAN 4 % (0-8); BASOPHILS PERCENT MAN 0 % (0-2); EOSINOPHILS PERCENT MAN 0 % (0-6); LYMPHOCYTES ABSOLUTE MAN 0.52 K/mm3 (0.84-5.20); LYMPHOCYTES PERCENT MAN 2 % (21-46); METAMYELOCYTE ABSOLUTE MAN 0.26 K/mm3 (0.00-0.00); METAMYELOCYTE PERCENT MAN 1 % (0-0); MONOCYTES ABSOLUTE MAN 0.26 K/mm3 (0.16-1.47); MONOCYTES PERCENT MAN 1 % (4-13); NEUTROPHILS ABSOLUTE MAN 25.13 K/mm3 (1.96-9.15); SEG NEUTROPHILS PERCENT MAN 92 % (41-73); TOTAL CELLS COUNTED 100
--- NOTE | 2020-03-24 06:49 | NUR ---
SHIFT SUMMARY LYING IN SEMI FOWLERS WITH EYES CLOSED. HAS RESTED WELL THIS SHIFT WITH C-PAP ON UNTIL 0430HRS, TOLERATED WELL. AAOX 4 WITH MILD CONFUSION NOTED, IS EASILY REORIENTED. CBG'S Q 6HRS ARE STABLE IN THE 150'S-160'S. LEFT IJ 4 LUMEN CATH IS PATENT, WITH DRESSING C/D/I. EACH LUMEN FLUSHEWS WITH EASE WITH GOOD BLOOD RETURN NOTED. RESPIRATIONS EVEN AND UNLABORED ON RA. MEDICATED FOR PAIN X2 THIS SHIFT, TOLERATED WELL. DENIES PAIN, DISCOMFORT, OR FURTHER NEEDDS AT THIS TIME. NO SIGNIFICANT CHANGES THIS SHIFT. SAFETY MEASURES IN PLACE. WILL CONTINUE TO MONITOR.
--- NOTE | 2020-03-24 09:00 | NUR ---
PT RESTING IN BED. A/O X4. WEAK AND STIFF T/O. LIMITED ROM, SHOULDERS ARE STIFF AND LEGS ARE DIFFICULT TO BEND OR MOVE AT HIP. PT IS DEPENDENT ON STAFF OF REPOSITIONS. DR. RENNER CAME IN AND CHANGED PACKING AND DRESSING TO PERIAREA. WOUND PHOTOS COMPLETE BUT DIFFICULT TO GET A GOOD IMAGE DUE TO PT BEING VERY STIFF. LABIA TO L SIDE WAS REMOVED AND THERE IS A LARGE OPEN AREA WHERE TISSUE WAS REMOVED. BP RUNNING ON THE LOWER SIDE THIS AM ESPECIALLY WITH SLEEPING AND UO ON THE LOWER SIDE WELL. DR. DUONG WANTS MAP 65 OR GREATER, WILL RESTART LEVOPHED IF NEEDED. SPEECH THERAPY WILL BE IN TO EVAL FOR FOOD AND LIQUIDS. NO SIGN OF DISTRESS.
--- NOTE | 2020-03-24 18:01 | NUR ---
SUMMARY PT RESTING IN BED. A/O X4 ALL DAY. PT WILL SLEEP WHEN UNDISTURBED. PT CRIES OUT WITH ANY MOVEMENT. PERIAREA IS REDENED AND PAINFUL, GAVE FENTANYL WITH LINEN CHANGE OR PERICARE. DR. RENNER CHANGED DRESSING TO PERIAREA THIS AM AND PACKED WITH KERLEX SOAKED IN DAKEN'S SOLUTION. DR. RENNER OK'D STARTING HEPARIN TODAY. HAS BEEN ON LEVOPHED AT 2MCG/MIN TO KEEP MAP [address] TALKED TO DR. MENDEZ ABOUT DECREASED UO. INCREASED IVF TO 75ML/HR. PT IS EATING AND DRINKING BUT NEEDS ASSISTANCE. DR. MENDEZ WOULD LIKE THE LEVOPHED OFF IF POSSIBLE. PT WORKED WITH OT TODAY. ALSO ABLE TO USE PHONE TO CALL FAMILY. NO SIGN OF DISTRESS, USING CALL LIGHT APPROPRIATELY.
--- NOTE | 2020-03-25 | NUR ---
REASSESSMENT NO ACUTE CHANGES FROM PREVIOUS ASSESSMENT. LEVOPHED RESTARTED PER MAPS BELOW 65, WILL MONITOR B/P. VITALS STABLE, CALL LIGHT IN REACH.
--- NOTE | 2020-03-25 04:00 | NUR ---
REASSESSMENT NO ACUTE CHANGES FROM PREVIOUS ASSESSMENT. PATIENT WITH EYES CLOSED, EASILY AWAKENS. DENIES DISCOMFORS. VITALS STABLE. CONITNUING TO INFUSE LEVOPHED, ATTEMPTING TO TITRATE OFF B/P STABILIZES. CALL LIGHT WITHIN REACH.
[2020-03-25 04:08] LABS: BASOPHILS ABSOLUTE AUTO 0.05 K/mm3 (0.00-0.23); BASOPHILS PERCENT AUTO 0 % (0-2); EOSINOPHILS ABSOLUTE AUTO 0.16 K/mm3 (0.00-0.68); EOSINOPHILS PERCENT AUTO 1 % (0-6); Hematocrit 27.5 % (33.0-51.0); Hemoglobin 8.2 g/dL (11.5-16.0); IMMATURE GRAN ABSOLUTE AUTO 0.94 K/mm3 (0.00-0.10); IMMATURE GRAN PERCENT AUTO 5 % (0-1); LYMPHOCYTES ABSOLUTE AUTO 2.14 K/mm3 (0.84-5.20); LYMPHOCYTES PERCENT AUTO 11 % (21-46); MONOCYTES ABSOLUTE AUTO 0.51 K/mm3 (0.16-1.47); MONOCYTES PERCENT AUTO 3 % (4-13); Mean Corpuscular HGB 24.5 pg (26.0-34.0); Mean Corpuscular HGB Conc 29.8 g/dL (31.5-36.5); Mean Corpuscular Volume 82 fL (80-100); Mean Platelet Volume 9.9 fL (9.1-12.4); NEUTROPHILS ABSOLUTE AUTO 15.52 K/mm3 (1.96-9.15); NEUTROPHILS PERCENT AUTO 80 % (41-73); NRBC ABSOLUTE 0.23 K/mm3 (0.00-0.02); NRBC Auto 1.2 /100 WBC (0.0-0.2); Platelet Count 335 K/mm3 (150-400); RDW Standard Deviation 59.5 fL (35.1-46.3); Red Blood Cell Count 3.35 M/mm3 (3.80-5.20); White Blood Cell Count 19.32 K/mm3 (4.00-11.30)
[2020-03-25 04:24] LABS: Anion Gap 10 mmol/L (6-16); Blood Urea Nitrogen 79 mg/dL (8-24); Bun/Creatinine Ratio 32.8 (12.0-20.0); CO2, Blood 22 mmol/L (21-32); Calcium, Blood 7.6 mg/dL (8.5-10.1); Chloride, Blood 103 mmol/L (98-108); Creatinine, Blood 2.41 mg/dL (0.40-1.00); Glomerular Filtration Rate 21 (60-); Glucose, Blood 166 mg/dL (70-99); Magnesium, Blood 2.2 mg/dL (1.6-2.4); Phosphorus, Blood 4.3 mg/dL (2.5-4.9); Potassium, Blood 3.5 mmol/L (3.5-5.5); Sodium, Blood 135 mmol/L (136-145); Vancomycin, Random 22.4 ug/mL
--- NOTE | 2020-03-25 06:15 | NUR ---
SHIFT SUMMARY NO ACUTE EVENTS OVER NIGHT. PATIENT RESTED COMFORTABLY, VITALS STABLE. LEVOPHED INFUSED CHARTED TO MAINTAIN BLOOD PRESSURE MAPS ABOVE 65. REPOSITIONED CHARTED FOR COMFORT, GLEASON DRAINING CLEAR, YELLOW URINE. LABS REVIEWED. WILL CONTINUE TO MONITOR AND REPORT TO ONCOMING RN.
--- NOTE | 2020-03-25 10:41 | NUR ---
PT RESTING IN BED. A/O X4, ABLE TO SLEEP WHEN UNDISTURBED. FENTANYL GIVEN FOR DRESSING CHANGE AND CLEANING UP BM THIS AM. DR. RENNER CHANGED KERLEX PACKING THIS AM AND PLACED ABD PADS TO PERIAREA SURGICAL DEBRIDEMENT SITE. DR. RENNER STATES WOUND LOOKS OK AGAIN TODAY AND NO PLANS TO RETURN TO OR. PT HAS STIFF JOINTS IN SHOULDERS AND HIPS WHICH LIMITS ROM. PT IS GETTING BETTER AT ASSISTING WITH TURNING IN BED. GOAL IS TO TRY TO GET PT TO A CHAIR TODAY WITH LIFT. ON LEVOPHED TODAY DUE TO LOW BP'S OVERNIGHT. WILL TRY TO TITRATE OFF. CALL LIGHT IN REACH.
--- NOTE | 2020-03-25 18:31 | NUR ---
SUMMARY PT RESTING IN BED. A/O X4 ALL DAY. C/O PAIN WITH REPOSITIONING AND WHEN NEEDING CLEANED UP. HAS HAD SEVERAL LOOSE BM'S TODAY. GAVE FENTANYL A FEW TIMES TODAY WHILE CLEANING PT UP OR WHEN DR. RENNER DID DRESSING CHANGE THIS AM BY PACKING WITH KERLEX SOAKED IN DAKEN'S SOLUTION. NO PLAN FOR MORE SURGERY AT THIS POINT. HAS BEEN ON LEVOPHED BETWEEN 1-3 MCG/MIN ALL DAY AND TRIED TO WEAN OFF THIS EVENING BUT BP TRENDS TO 70'S SYSTOLICALLY. BP TENDS TO BE LOWER WHEN SLEEPING OR AFTER FENTANYL. PT IS TOLERATING SOME FOOD, AND IS DOING WELL WITH WATER. GOT CLEARED BY SPEECH THERAPY TODAY FOR THIN LIQUIDS AND OK WITH STRAW. PT IS WEAK T/O AND NEEDS SOME ASSISTANCE WITH EATING. DID NOT GET OOB TODAY B/C SHE IS A LIFT PT AND THE LIFT IN HER ROOM NEEDS MAINTENANCE. PT WORKED WITH PT IN BED WITH ARM EXERCISES AND PT IS GETTING STRONGER WITH ASSISTING WITH TURNS. CALL LIGHT IN REACH AND PT USES APPROPRIATELY.
--- NOTE | 2020-03-25 19:15 | NUR ---
ASSUMPTION OF CARE RECEIVED REPORT FROM ODILIA AVITIA. ASSUMED CARE OF PATIENT. PATIENT WITH EYES CLOSED, EASILY AWAKENS. A/O, DENIED NEEDS OR DISCOMFORTS. VITALS STABLE ON LEVOPHED 3MCG/HR. SATS ABOVE 95% ON ROOM AIR. DRESSINGS TO SURGICAL AND WOUND SITES C/D/I. GLEASON PATENT AND DRAINING CLEAR, YELLOW URINE. WILL REVIEW ORDERS AND TREAT PRESCRIBED. CALL LIGHT IN REACH.
--- NOTE | 2020-03-26 | NUR ---
REASSESSMENT NO ACUTE CHANGES FROM PREVIOUS ASSESSMENT. PATIENT WITH EYES CLOSED, EASILY AWAKENS, DENIES PAIN. REPOSITIONED CHARTED. CLEAR YELLOW URINE DRAINING FROM CATHETER. VITALS STABLE, LEVO REMAINS AT 2MCG. CALL LIGHT IN REACH.
--- NOTE | 2020-03-26 04:00 | NUR ---
REASSESSMENT NO ACUTE CHANGES FROM PREVIOUS ASSESSMENT. PATIENT DENIES NEEDS OR DISCOMFORTS. VITALS STABLE, TITRATING DOWN LEVOPHED CHARTED. GLEASON CATHETER REMAINS PATENT AND DRAINING CLEAR, YELLOW URINE.
[2020-03-26 04:14] LABS: BASOPHILS ABSOLUTE AUTO 0.05 K/mm3 (0.00-0.23); BASOPHILS PERCENT AUTO 0 % (0-2); EOSINOPHILS ABSOLUTE AUTO 0.12 K/mm3 (0.00-0.68); EOSINOPHILS PERCENT AUTO 1 % (0-6); Hematocrit 28.4 % (33.0-51.0); Hemoglobin 8.6 g/dL (11.5-16.0); IMMATURE GRAN ABSOLUTE AUTO 0.76 K/mm3 (0.00-0.10); IMMATURE GRAN PERCENT AUTO 4 % (0-1); LYMPHOCYTES PERCENT AUTO 15 % (21-46); MONOCYTES PERCENT AUTO 3 % (4-13); Mean Corpuscular HGB 24.7 pg (26.0-34.0); Mean Corpuscular HGB Conc 30.3 g/dL (31.5-36.5); Mean Corpuscular Volume 82 fL (80-100); Mean Platelet Volume 10.8 fL (9.1-12.4); NEUTROPHILS ABSOLUTE AUTO 13.16 K/mm3 (1.96-9.15); NEUTROPHILS PERCENT AUTO 77 % (41-73); NRBC ABSOLUTE 0.12 K/mm3 (0.00-0.02); NRBC Auto 0.7 /100 WBC (0.0-0.2); Platelet Count 326 K/mm3 (150-400); RDW Coefficient Variation 20.5 % (11.7-14.2); RDW Standard Deviation 59.4 fL (35.1-46.3); Red Blood Cell Count 3.48 M/mm3 (3.80-5.20); White Blood Cell Count 17.09 K/mm3 (4.00-11.30)
[2020-03-26 04:28] LABS: Calcium, Blood 7.8 mg/dL (8.5-10.1); Creatinine, Blood 2.11 mg/dL (0.40-1.00); Potassium, Blood 3.4 mmol/L (3.5-5.5)
--- NOTE | 2020-03-26 06:05 | NUR ---
SHIFT SUMMARY NO ACUTE CHANGES THROUGH SHIFT. LEVOPHED TITRATED CHARTED TO MAINTAIN MAPS ABOVE 65. MEDICATED FOR PAIN AND REPOSITIONED CHARTED. GLEASON CATHETER REMAINED PATENT AND DRAINED CLEAR, YELLOW URINE. BOWEL MOVEMENT CHARTED. CARDIAC RHYTHM CHANGES NOTED AND REPORTED TO DR. SIMMONS, POTASSIUM OF 3.4 ALSO REPORTED, RECEIVED NEW ORDERS. POTASSIUM CURRENTLY INFUSING. WILL CONTINUE TO MONITOR AND TREAT PRESCRIBED.
--- NOTE | 2020-03-26 08:30 | NUR ---
ASSUMED CARE REPORT FROM FAVIOLA AVITIA. PT RESTING IN BED. WAKES c VERBAL STIMULI. A&OX 3. ANSWERS QUESTIONS APPROPRIATELY, FOLLOWS COMMANDS. PT C/O 02/23 PAIN TO PERIAREA. MOVES ALL EXTREMITIES SLOWLY. LIMITED ROM. LUNGS DIMINISHED IN BASES. RA. ABD ROUND, SOFT, NON TENDER. BT X 4. POOR APPETITE. ENCOURAGED PO INTAKE. LEVOPHED GTT FOR MAP >65. CENTRAL LINE TO LIJ. DRESSING TO BE CHANGED TODAY. ABRASION TO ANTERIOR RLE, DRESSING INTACT. BLISTER TO RIGHT FOOT. PACKING TO LEFT GROIN. WILL ASSESS WHEN DR RENNER CHANGES DRESSING. GLEASON PATENT, DRAINING CLOUDY YELLOW URINE TO GRAVITY. WILL CONTINUE TO MONITOR.
--- NOTE | 2020-03-26 15:00 | NUR ---
DR RENNER ROUNDS DR RENNER AT BEDSIDE TO CHANGE DRESSING. PACKING REMOVED. REPLACED c KERLEX c DAKIN AND ABD PADS. NO CHANGES IN WOUND. PER DR RENNER NO NEED FOR SURGICAL INTERVENTION TODAY. REDNESS AND ABRASION LIKE APPEARANCE NOTED TO RIGHT LABIA. XEROFORM PLACED BY DR RENNER.
--- NOTE | 2020-03-26 17:30 | NUR ---
SHIFT SUMMARY PT ASSESSMENT REMAINS UNCHANGED. LEVOPHED TITRATED OFF THIS SHIFT. MIDODRINE ADDED. MAP >65. DR RENNER CHANGED DRESSING, SEE NOTE AND UPDATED PHOTO. MEDICATED c NORCO AND FENTANYL FOR PAIN THIS SHIFT. POOR APPETITE, ENCOURAGED PO INTAKE. PT c MULTIPLE BMS AND BEDPAN USE THIS SHIFT. WILL CONTINUE TO MONITOR UNTIL REPORT TO ONCOMING NURSE.
--- NOTE | 2020-03-26 19:25 | NUR ---
ASSESSMENT PT RESTING QUIETLY WITH EYES CLOSED. AWAKENS EASILY TO VERBAL STIMULI. DENIES PAIN OR DISCOMFORT. STATES,"I FEEL OKAY RIGHT NOW". LUNGS CLEAR BUT DECREASED IN THE BASES ON ROOMAIR. RESP EVEN AND NONLABORED. WEAK NONPRODUCTIVE COUGH NOTED. HEART RATE REGULAR, BP STABLE. CENTRAL LINE TO LEFT IJ WITH NS AT 10 ML/HR. LEVOPHED STOPPED ON DAY SHIFT AND MIDORINE STARTED. EDEMA TO BILAT LOWER EXT AND RIGHT ARM. BT+ ABD SOFT AND NONTENDER. DENIES N/V AT THIS TIME. GLEASON CATH PATENT. PT BACK TO SLEEP QUICKLY AFTER ASSESSMENT.
--- NOTE | 2020-03-26 21:04 | NUR ---
NAUSEA PT C/O NAUSEA AFTER HS MEDS GIVEN. RECEIVED ORDER FOR ZOFRAN FROM HOSPITALIST IKE MELCHOR.
--- NOTE | 2020-03-27 00:02 | NUR ---
REASSESSMENT PT SLEEPING, AWAKENS TO VERBAL STIMULI. STATES,"NAUSEA IS BETTER". C/O PAIN 5/10 "EVERYWHERE". PT MED WITH FENTANYL AND NORCO FOR PAIN. C/O NAUSEA AFTER PO MEDS GIVEN. COOL CLOTH TO FACE RELEAVED NAUSEA. PT REPORTS IMPROVED PAIN 3/10 AFTER FENTANYL. PT REPOSITIONED. SMALL SMEAR OF LOOSE STOOL CLEANED.
[2020-03-27 04:11] LABS: Bun/Creatinine Ratio 40.3 (12.0-20.0); Calcium, Blood 7.5 mg/dL (8.5-10.1); Creatinine, Blood 1.86 mg/dL (0.40-1.00); Magnesium, Blood 1.9 mg/dL (1.6-2.4); Potassium, Blood 3.7 mmol/L (3.5-5.5)
--- NOTE | 2020-03-27 05:27 | NUR ---
SHIFT SUMMARY PT RESTED QUIETLY THROUGHOUT THE NIGHT. MED WITH FENATNYL AND NORCO FOR PAIN WITH GOOD RESULTS. MED WITH ZOFRAN FOR NAUSA WITH GOOD RESULTS. VSS. TURNED Q2 HRS SIDE TO SIDE TO KEEP OFF COCCYX. LOOSE STOOL DURING THE NIGHT. CENTRAL LINE ALL PORTS FLUSHING WITHOUT DIFFICULTY AND ALL CAPS CHANGED. NO ACUTE CHANGE. REPORT TO ON COMING NURSE
--- NOTE | 2020-03-27 08:00 | NUR ---
ASSUMED CARE BEDSIDE REPORT FROM JANES AVITIA AT 0700. PT RESTING IN BED. WAKES c VERBAL STIMULI. A&O X3. FOLLOWS COMMANDS. PT C/O PAIN TO VETO AREA. DRESSING CHANGE BY CHARMAINE ABDUL SALINE AND ABD PADS. WOUND BED UNCHANGED, NO SURGIAL INTERVENTION ANTICIPATED TODAY. REDNESS TO RIGHT LABIA WORSE. BARRIER CREAM APPLIED. INCREASED APPETITE THIS SHIFT, PREMEDICATED c ZOFRAN PRIOR TO BREAKFAST. EDEMA CONTINUES ON ALL EXTREMITIES. PT STATUS CHANGED TO SURGICAL s TELE THIS AM. VSS. WILL CONTINUE TO MONITOR.
--- NOTE | 2020-03-27 17:46 | NUR ---
SHIFT SUMMARY PT REMAINS IN ICU, AWAITING SURGICAL BED ASSIGNEMENT. NO ACUTE CHANGES THIS SHIFT. PT UP TO CHAIR FOR SEVERAL HOUR. TOLERATED WELL. PAIN CONTROLLED c NORCO PO, FENTANYL GIVEN PRIOR TO DRESSING CHANGES. VSS. WILL CONTINUE TO MONITOR UNTIL REPORT TO ONCOMING NURSE.
--- NOTE | 2020-03-27 20:58 | NUR ---
UPDATE PATIENT HAD BEEN HAVING NAUSEA EPISODES PERIODICALLY THROUGHOUT THE EVENING SO FAR. NURSE PRACTIONER ROSITA NOTIFIED AND PLACED AN ADDITIONAL ORDER FOR NAUSEA MEDICATION IF NEEDED. PATIENT HAS ROOM ASSIGNED ON SURGICAL FLOOR. REPORT GIVEN TO ADORE LEWIS AT THIS TIME.
--- NOTE | 2020-03-27 21:35 | NUR ---
received pt chay bed to rm #[id number] alert on turn sheet. shields patent. 4 +edema noted to ext.wounds to rle and labia [facility] wound care reported per multicultural manager ashley completed daily per dr rodriguez only.pt will needing 02 2L n/c for sleep as pt refuses cpap or bipap for her sleep apnea.
--- NOTE | 2020-03-27 21:42 | NUR ---
UPDATE PATIENT TRANSFERED OUT TO THE SURGICAL FLOOR AT APPROX 2130 VIA BED BY NILDA GALARZA. ALL BELONGINGS GATHERED AND SENT WITH PATIENT.
[2020-03-28 05:56] LABS: Bun/Creatinine Ratio 42.8 (12.0-20.0); Calcium, Blood 7.8 mg/dL (8.5-10.1); Creatinine, Blood 1.73 mg/dL (0.40-1.00); Potassium, Blood 4.1 mmol/L (3.5-5.5)
--- NOTE | 2020-03-28 08:18 | NUR ---
SUMMARY PT MED WITH JUDAH THIS AM FOR NAUSEA,SPITTING UP MOSTLY WHITE MUCUS. JAMAL SX PLACED AT BEDSIDE IN USE.
--- NOTE | 2020-03-28 08:41 | NUR ---
DR MCCRARY BY TO SEE PT HAVING DRY HEAVES PHENERGAN GIVEN TO EARLY FOR JOSUEAN
--- NOTE | 2020-03-28 12:40 | NUR ---
dr rodriguez by to see pt dressing changed pt had small smear of stool cleaned pt changed new pad placed dr hughes talent acquisition program manager for the weekened
--- NOTE | 2020-03-28 16:03 | NUR ---
talked with pt's sister earlier she reported pt when anxious tries to make herself vomit has been doing this for several months earlier i asked pt why she is sick she said her head and i asked if it was from a headache and she daid no from being worried placed a scopalmine patch behind the ear talked with the dr gupta anxiety med declined at this time [facility]
--- NOTE | 2020-03-28 16:12 | NUR ---
Call back - Pastoral Care Pt was laying in bed gagging occassionally. Pt stated she was in some pain and experiencing some anxiety. Provided space for pt to reflect on events leading up to hospital admittance and current emotional state. Provided tactile presence as pt divulged her emotions. Provided active soundboarding and words of encouragement as her gagging reflexes ceased. Pt stated she would like to get some rest and PC provided verbal prayer on her behalf. Pt identified music as a calming agent for her. Updated manager radiation.
--- NOTE | 2020-03-29 04:41 | NUR ---
SHIFT SUMMARY: WILBERT IS A&OX4. VSS, NO ACUTE EVENTS OVERNIGHT. 2L VIA NC MAINTAINING SATS ABOVE 90%. SHE IS A TURN AND REPOSITION WITH THE LIFT. SHE CONTINUES TO HAVE EPISODES OF "DRY HEAVES" WHICH PRODUCES WHITE, FROTHY SPUTUM. ORDER OBTAINED FOR PROTONIX. GLEASON PATENT AND DRAINING. SHE WAS ABLE TO SWALLOW AND KEEP HER MEDICATIONS DOWN. SHE HAD A MEDIUM, SOFT INCONTINENT STOOL THIS SHIFT. LEGS FLOATED. PACKING TO VAGINAL WOUND IN PLACE. SHE USES HER CALL LIGHT APPROPRIATELY. SHE IS LYING IN BED WITH HER CALL LIGHT IN REACH. WILL REPORT TO DAY SHIFT RN.
[2020-03-29 06:03] LABS: BASOPHILS ABSOLUTE AUTO 0.01 K/mm3 (0.00-0.23); BASOPHILS PERCENT AUTO 0 % (0-2); EOSINOPHILS PERCENT AUTO 0 % (0-6); Hematocrit 28.3 % (33.0-51.0); Hemoglobin 8.4 g/dL (11.5-16.0); IMMATURE GRAN ABSOLUTE AUTO 0.16 K/mm3 (0.00-0.10); IMMATURE GRAN PERCENT AUTO 2 % (0-1); LYMPHOCYTES ABSOLUTE AUTO 1.84 K/mm3 (0.84-5.20); LYMPHOCYTES PERCENT AUTO 17 % (21-46); MONOCYTES ABSOLUTE AUTO 0.32 K/mm3 (0.16-1.47); MONOCYTES PERCENT AUTO 3 % (4-13); Mean Corpuscular HGB 24.7 pg (26.0-34.0); Mean Corpuscular HGB Conc 29.7 g/dL (31.5-36.5); Mean Corpuscular Volume 83 fL (80-100); Mean Platelet Volume 10.3 fL (9.1-12.4); NEUTROPHILS ABSOLUTE AUTO 8.48 K/mm3 (1.96-9.15); NEUTROPHILS PERCENT AUTO 78 % (41-73); NRBC ABSOLUTE 0.08 K/mm3 (0.00-0.02); NRBC Auto 0.7 /100 WBC (0.0-0.2); Platelet Count 231 K/mm3 (150-400); RDW Coefficient Variation 21.7 % (11.7-14.2); RDW Standard Deviation 63.3 fL (35.1-46.3); White Blood Cell Count 10.81 K/mm3 (4.00-11.30)
[2020-03-29 06:17] LABS: Bun/Creatinine Ratio 41.1 (12.0-20.0); Creatinine, Blood 1.85 mg/dL (0.40-1.00); Potassium, Blood 3.9 mmol/L (3.5-5.5)
[2020-03-29 11:25] LABS: C-REACTIVE PROTEIN, EXT RANGE 3.08 mg/dL (0.000-0.300); Prealbumin, Blood 7.5 mg/dL (20.0-40.0)
--- NOTE | 2020-03-29 16:24 | NUR ---
SHIFT SUMMARY PT A&OX2-3, PLEASANT & COOPERATIVE, CBGS ACHS. POD8 SURG DEBRIDEMENT, PACKING CHANGED THIS SHIFT. GLEASON PATENT & DRAINING YELLOW URINE/BM TODAY. INTAKING VERY LOW PO, ENCOURAGED ENSURES AND SUPPLEMENTS. NAUSEA TREATED WITH PHENERGAN. ANXIETY TREATED WITH ATARAX AND ATIVAN. PAIN MANAGED WITH 5 MG NORCO. PT REPOSITIONED, BED BATH, HAIR WASHED, PILLOW CASES BETWEEN PANUS AND UNDER BREASTS, BLE ELEVATED ON PILLOWS, PILLOWS UNDER BUTTOCKS. WILL REPORT TO ONCOMING NOC RN.
--- NOTE | 2020-03-30 03:13 | NUR ---
SHIFT SUMMARY NO ACUTE CHANGES OVERNIGHT. AOX3. SHE REPORTS PAIN, NORCO WAS GIVEN BY PO. TOLERATING PO MEDS. PT STILL HAS POOR APPETITE, ENC TO DRINK FLUIDS AND ENSURE DRINKS. ABX ADMINISTERED ON MOR IV. SHE SLEPT WELL T/O THE SHIFT. SHE WOKE UP AT MIDNIGHT, ANXIOUS AND DRY HEAVING. ATIVAN AND ZOFRAN ADMINSTERED. NO VOMITING NOTED. SX IMPROVED, PT WENT BACK TO SLEEP. CATH PATENT AND INTACT. PT REPORTS PAIN HAS IMPROVED THIS MORNING FROM 8/ TO 6. PILLOWCASE CHANGED FROM UNDER HER PANUS AND BREAST.CALL LIGHT W/IN REACH.
[2020-03-30 05:17] LABS: Bun/Creatinine Ratio 43.1 (12.0-20.0); Creatinine, Blood 1.81 mg/dL (0.40-1.00); Phosphorus, Blood 3.8 mg/dL (2.5-4.9); Potassium, Blood 3.9 mmol/L (3.5-5.5)
--- NOTE | 2020-03-30 17:04 | NUR ---
SHIFT SUMMARY PT A&O2-3, PLEASANT & COOPERATIVE, CBGS ACHS, 2LNC. POD9 DEBRIDEMENT X2, PACKING CHANGED BY SURGEON. PAIN MANAGED WITH NORCO. LIT PO, INCREASED INTAKE OF SUPPLEMENTS, DECREASE OF NAUSEA THIS SHIFT. GLEASON PATENT & DRAINING, OFF FLOOR. IVF KVO, ABX INFUSED SCHEDULED. WILL REPORT TO ONCOMING NOC RN.
--- NOTE | 2020-03-31 04:48 | NUR ---
SHIFT SUMMARY: WILBERT IS A&OX4. VSS, NO ACUTE EVENTS OVERNIGHT, MAINTAINING SATS ON 2 L NC. FISTULA TO LEFT FOREARM WITH POSITIVE THRILL AND BRUIT. PILLOWCASES IN FOLDS. GLEASON PATENT. POWERGLIDE TO MOR PATENT. SHE IS TOLERATING SIPS OF WATER BUT CONTINUES COMLAINING OF DRY HEAVES. HEELS FLOATED. SHE USES HER CALL LIGHT APPROPRIATELY. SHE IS LYING IN BED WITH HER CALL LIGHT IN REACH. WILL REPORT TO DAY SHIFT RN.
--- NOTE | 2020-03-31 17:17 | NUR ---
SUMMARY NO ACUTE CHANGES T/O SHIFT. PT REFUSED LIQUECEL AND RALPH. DRANK WATER, ONE GLUCERNA AND ATE FEW BITES JELLO. STILL HEAVES OCCASIONALLY. SCOPALAMINE PATCH PLACED TODAY PER ORDERS BEHIND L EAR. SAT UP IN CHAIR FOR A COUPLE HOURS. REPOSITIONED IN BED T/O DAY. SUCTIONS MOUTH OUT INDEPENDENTLY. SUCTION AND CALL LIGHT IN REACH.
--- NOTE | 2020-03-31 17:44 | NUR ---
Pt resting in bed and reports 7/10 and moderate level of nausea. Engaged in therapeutic listening and answered questions. Confirmed with Pt that she is considering her wishes for CPR. Educated on life sustaining treatments including risk factors and implications. Pt reports wanting to talk with her family before making decision. Visit was brief due to Pt's discomfort. Pt agreeable for continued visits. Spoke with Bedside RN Nakia, relayed Pt's pain and nausea. Palliative Care will remain available.
[2020-04-01 05:38] LABS: Bun/Creatinine Ratio 41.4 (12.0-20.0); Calcium, Blood 7.7 mg/dL (8.5-10.1); Creatinine, Blood 1.86 mg/dL (0.40-1.00); Potassium, Blood 3.7 mmol/L (3.5-5.5)
[2020-04-01 08:48] LABS: BASOPHILS ABSOLUTE AUTO 0.02 K/mm3 (0.00-0.23); BASOPHILS PERCENT AUTO 0 % (0-2); EOSINOPHILS PERCENT AUTO 0 % (0-6); Hematocrit 32.6 % (33.0-51.0); Hemoglobin 9.6 g/dL (11.5-16.0); IMMATURE GRAN ABSOLUTE AUTO 0.09 K/mm3 (0.00-0.10); IMMATURE GRAN PERCENT AUTO 1 % (0-1); LYMPHOCYTES ABSOLUTE AUTO 1.87 K/mm3 (0.84-5.20); LYMPHOCYTES PERCENT AUTO 13 % (21-46); MONOCYTES ABSOLUTE AUTO 0.54 K/mm3 (0.16-1.47); MONOCYTES PERCENT AUTO 4 % (4-13); Mean Corpuscular HGB 24.6 pg (26.0-34.0); Mean Corpuscular HGB Conc 29.4 g/dL (31.5-36.5); Mean Corpuscular Volume 84 fL (80-100); NEUTROPHILS ABSOLUTE AUTO 12.25 K/mm3 (1.96-9.15); NEUTROPHILS PERCENT AUTO 83 % (41-73); NRBC ABSOLUTE 0.03 K/mm3 (0.00-0.02); NRBC Auto 0.2 /100 WBC (0.0-0.2); Platelet Count 161 K/mm3 (150-400); RDW Coefficient Variation 22.8 % (11.7-14.2); RDW Standard Deviation 68.1 fL (35.1-46.3); White Blood Cell Count 14.77 K/mm3 (4.00-11.30)
[2020-04-01 08:56] LABS: Mean Platelet Volume 10.4 fL (9.1-12.4)
[2020-04-01 09:13] LABS: Albumin, Blood 1.6 g/dL (3.4-5.0); Albumin/Globulin Ratio 0.4 (0.8-1.8); Bilirubin, Total 0.4 mg/dL (0.1-1.0); Bun/Creatinine Ratio 41.6 (12.0-20.0); Calcium, Blood 7.7 mg/dL (8.5-10.1); Creatinine, Blood 1.85 mg/dL (0.40-1.00); Globulin, Blood 3.9 g/dL (2.2-4.0); Potassium, Blood 4.2 mmol/L (3.5-5.5); Total Protein, Blood 5.5 g/dL (6.4-8.2)
--- NOTE | 2020-04-01 11:42 | NUR ---
Received call from Chaplain Adorno and discussed case. Pt having unmanaged pain. Pt resting in bed upon arrival. Pt reports 6/10 pain. Reviewed medications available and educated on the importance of requesting pain medications before pain becomes overwhelming. Educated on the importance of managing pain. Pt reports plan to D/C today approximately at 1300 to SNF in [place]. Spoke with Bedside RN Nakia, discussed case, and reviewed pain medications. Nakia will offer PO pain medication soon then premedicate with IV Fentanyl just before D/C to assist with Pt tolerating transport to SNF. Palliative Care will remain available.
[2020-04-01 12:10] LABS: Influenza A, PCR NEGATIVE (NEGATIVE); Influenza B, PCR NEGATIVE (NEGATIVE); Resp Syncytial Virus, PCR NEGATIVE (NEGATIVE); SARS-Cov-2 (COVID-19) PCR, MMC NEGATIVE (NEGATIVE)
--- NOTE | 2020-04-01 13:06 | NUR ---
PT LEFT UNIT BY NICOLAS. DC'D IV, CATHETER INTACT. MEDICATED PT PER ORDERS BEFORE LEAVING FOR PAIN. PT HAD BM PRIOR TO LEAVING. CALLED REPORT TO FACILITY.
--- NOTE | 2020-04-01 17:00 | NUR ---
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 Her sister and nieces live with her in [place]. She is happy to be going to a rehab in [place]. She is being d/cwithin the hour.
== END 2020-04-01 12:56 | DRG 853 ==
LOC: ER 18:37 → ICUW 21:15 → ICUE 21:15 → SURS 03-27 22:00
PROVIDERS: Emergency Medicine; Family Medicine; Hospitalist; Internal Medicine; Internal Medicine Critical Care Medicine; Internal Medicine Pulmonary Disease; Pharmacist; Surgery; ADMIT Family Medicine
PROC: 0BH17EZ Insertion of Endotracheal Airway into Trachea, Via Natural or Artificial Opening (ICD-10-PCS; 2020-03-21)
PROC: 02HV33Z Insertion of Infusion Device into Superior Vena Cava, Percutaneous Approach (ICD-10-PCS; 2020-03-21)
PROC: 5A1945Z Respiratory Ventilation, 24-96 Consecutive Hours (ICD-10-PCS; 2020-03-21)
PROC: 30283B1 Transfusion of Nonautologous 4-Factor Prothrombin Complex Concentrate into Vein, Percutaneous Approach (ICD-10-PCS; 2020-03-21)
PROC: 0KBM0ZZ Excision of Perineum Muscle, Open Approach (ICD-10-PCS; principal; 2020-03-21 21:00)
PROC: 3E043XZ Introduction of Vasopressor into Central Vein, Percutaneous Approach (ICD-10-PCS; 2020-03-22)
DX: A41.9 Sepsis, unspecified organism (principal); R65.21 Severe sepsis with septic shock; J95.821 Acute postprocedural respiratory failure; N17.9 Acute kidney failure, unspecified; E87.1 Hypo-osmolality and hyponatremia; I48.20 Chronic atrial fibrillation, unspecified; N39.0 Urinary tract infection, site not specified; E46 Unspecified protein-calorie malnutrition; L97.921 Non-pressure chronic ulcer of unspecified part of left lower leg limited to breakdown of skin; Z68.44 Body mass index [BMI] 60.0-69.9, adult; N18.4 Chronic kidney disease, stage 4 (severe); K21.9 Gastro-esophageal reflux disease without esophagitis; E11.22 Type 2 diabetes mellitus with diabetic chronic kidney disease; E11.65 Type 2 diabetes mellitus with hyperglycemia; I12.9 Hypertensive chronic kidney disease with stage 1 through stage 4 chronic kidney disease, or unspecified chronic kidney disease; D63.1 Anemia in chronic kidney disease; Z79.4 Long term (current) use of insulin; I25.10 Atherosclerotic heart disease of native coronary artery without angina pectoris; E87.6 Hypokalemia; Z79.01 Long term (current) use of anticoagulants; E88.09 Other disorders of plasma-protein metabolism, not elsewhere classified; E83.42 Hypomagnesemia; E83.51 Hypocalcemia; D47.3 Essential (hemorrhagic) thrombocythemia; E11.622 Type 2 diabetes mellitus with other skin ulcer; R79.1 Abnormal coagulation profile; G47.33 Obstructive sleep apnea (adult) (pediatric); F41.8 Other specified anxiety disorders; E66.01 Morbid (severe) obesity due to excess calories; B96.4 Proteus (mirabilis) (morganii) as the cause of diseases classified elsewhere; M79.2 Neuralgia and neuritis, unspecified; Z91.19 Patient's noncompliance with other medical treatment and regimen
CPT/HCPCS: 0241U; 31720; 36415; 36430; 36556; 36600; 71045; 74176; 76857; 80048; 80053; 80069; 80202; 81001; 82150; 82330; 82803; 82947; 83036; 83605; 83690; 83735; 84100; 84134; 85014; 85018; 85025; 85610; 86140; 86850; 86900; 86901; 86923; 87040; 87070; 87075; 87077; 87086; 87186; 87205; 92526; 92610; 93005; 93010; 94002; 94003; 94660; 96365-59; 96367-59; 96368; 96375-59; 97110; 97163; 97165; 99285-25; A9270; C1751; C9113; C9132; J0330; J0610; J0692; J0696; J1644; J2060; J2185; J2405; J2543; J2550; J2704; J3010; J3370; J3430; J3475; J3480; J7030; J7040; J7050; J7060; J7120; P9016; P9035; P9059